=== PATIENT | male | born 1970 | race Caucasian/White ===

== ENCOUNTER 2018-03-19 16:17 | Emergency (ER) | payer OTHER ==
[~2018-03-19 16:17] MED LIST: ASPI81TA15 PO; AUG875 PO; ENO100I SC; ENOX100D2 SC; HIGH CHOLESTEROL MED; HYDR-653 PO; OMEG-11 PO; PAR20 PO; PRA20 PO; PRED-1 PO; PROM-110 PO; WARF-12 PO; WARF2.5T62 PO; [UNRECOGNIZED DRUG - REMARK]
--- NOTE | 2018-03-19 16:25 | ER Report ---
History and Physical Time Seen By MD: 16:25 Hx. of Stated Complaint: hit finger with sledgehammer HPI/ROS CHIEF COMPLAINT: Hit finger with sledgehammer HISTORY OF PRESENT ILLNESS: 47-year-old male patient presents to emergency room with complaint of injury to the right index finger. Patient states that he was working today and was driving a post with a sledgehammer. He states he missed and hit his finger. Patient states he is right-hand dominant. Patient denies having any numbness tingling in the finger. States this pain is currently a 4 out of 10. Patient has not taken any medication for this. Patient is unable recall his last tetanus shot. Allergies: Coded Allergies: No Known Drug Allergies (Verified , 03/19/18) Home Meds Active Scripts Cephalexin 500 Mg Tab (KEFLEX 500 MG TAB) 500 Mg Tablet, 500 MG PO Q6H, #26 TAB Prov:ALLEN HEREDIA 03/19/18 Discontinued Scripts Hydrocodone Bit/Acetaminophen (NORCO 5-325 TABLET) 1 Each Tablet, 1 EACH PO 2- 3XD, #20 TAB Prov:JANAE GARCIA MD 02/25/16 Past Medical/Surgical History Patient has a past medical history of pulmonary embolism, fracture, depression. Patient has a surgical history of partial colectomy, right ankle surgery. Reviewed Nurses Notes: Yes Hx Smoking: No Smoking Status: Never Smoker Constitutional Vital Sign - Last 24 Hours 03/19/18 03/19/18 03/19/18 03/19/18 16:20 16:21 16:30 16:47 Temp 97.9 Pulse 90 83 Resp 16 B/P (MAP) 128/85 (99) 128/85 102/69 (80) Pulse Ox 87 90 O2 Delivery Room Air Physical Exam General Appearance: The patient is alert, has no immediate need for airway protection and no current signs of toxicity. Respiratory: Chest is non tender, lungs are clear to auscultation. Cardiac: regular rate and rhythm Skin: No rashes or lesions. Patient has 3cm laceration to the right index finger. No tenderness to palpation DIFFERENTIAL DIAGNOSIS: After history and physical exam differential diagnosis was considered for laceration, fracture. Medical Decision Making EKG/Imaging Imaging INDICATION: hit with sledge hammer Hit index finger with a sledgehammer DATE: 03/19/2018 4:58 PM. TECHNIQUE: HAND COMPLETE RIGHT COMPARISON: None FINDINGS: Bony alignment is normal. No fracture or dislocation. There is a metallic density projected at the level of the second metacarpal head on the frontal view. IMPRESSION: No evidence of fracture or dislocation. Report Dictated By: Eamon Davison MD at 03/19/2018 4:58 PM Report E-Signed By: Eamon Davison MD at 03/19/2018 5:00 PM ED Course/Re-evaluation ED Course Patient was admitted and examined, history and physical were obtained. Differential diagnoses were considered. On examination patient has laceration to the posterior aspect of the right index finger. With patient having with a hammer an x-ray of the hand was done. There are no dislocations or fractures. I discussed findings with the patient. The wound was anesthetized, cleaned and repaired described below. Patient tolerated procedure well. We'll go ahead and discharge patient home at this time. He is to follow-up with his primary care provider to have the sutures removed in 7-10 days. He states the wound clean. I would like him to keep the wound dry for the next 48 hours. Patient states Tylenol or ibuprofen as needed for pain. Patient verbalized understanding and agreement with plan. Procedure: Laceration repair. Verbal consent was obtained from the patient. The 4 cm laceration on the right index finger was anesthetized in the usual fashion. The wound was scrubbed, draped and explored to its base with a gloved finger. There were no deep structures involved. No tendon injury was identified. The wound was repaired with 10 simple interrupted sutures using 4-0 Prolene material. The wound repair was simple. The procedure was performed by myself. Decision to Disposition Date: Mar 19, 2018 Decision to Disposition Time: 17:54 Depart Departure Latest Vital Signs Vital Signs Date Time Temp Pulse Resp B/P (MAP) Pulse Ox O2 Delivery O2 Flow Rate FiO2 03/19/18 16:47 83 90 03/19/18 16:30 102/69 (80) 03/19/18 16:21 97.9 16 Room Air Impression: Primary Impression: Finger laceration Condition: Improved Disposition: HOME OR SELF-CARE New Scripts Cephalexin 500 Mg Tab (KEFLEX 500 MG TAB) 500 Mg Tablet 500 MG PO Q6H, #26 TAB Prov: ALLEN HEREDIA 03/19/18 Patient Instructions: Finger Laceration (ED) Additional Instructions: Keep wound dry for 48 hours. Follow up with your primary care provider in the next 7-10 days to have sutures removed. Monitor for signs of infection; redness, swelling, heat, discharge, increasing pain or red streaking. Take Tylenol or Ibuprofen as needed for pain. Return to the ER with any concerns. You may change dressing as needed. Problem Qualifiers Primary Impression: Finger laceration Encounter type: initial encounter Finger: index finger Damage to nail status: without damage Foreign body presence: without foreign body Laterality: right Qualified Codes: S61.210A - Laceration without foreign body of right index finger without damage to nail, initial encounter ALLEN HEREDIA Mar 19, 2018 16:25
[2018-03-19 16:30] VITALS: BP 102/69
[2018-03-19] MEDS ORDERED: DIPHTH/TETANUS/ACEL. PERTUSSIS IM ONLY ONE (16:35)
--- NOTE | 2018-03-19 17:05 | RADIOLOGY IMAGING REPORT ---
FACILITY: [facility] PATIENT NAME: Issac Lieberman : 1970 MR: [id number] V: [id number] EXAM DATE: ORDERING PHYSICIAN: ALLEN HEREDIA TECHNOLOGIST: Location: [facility] - [place] Patient: Issac Lieberman : 1970 Visit/Account:[id number] Date of Sevice: 03/19/2018 INDICATION: hit with sledge hammer Hit index finger with a sledgehammer DATE: 03/19/2018 4:58 PM. TECHNIQUE: HAND COMPLETE RIGHT COMPARISON: None FINDINGS: Bony alignment is normal. No fracture or dislocation. There is a metallic density project ed at the level of the second metacarpal head on the frontal view. IMPRESSION: No evidence of fracture or dislocation. Report Dictated By: Eamon Davison MD at 03/19/2018 4:58 PM Report E-Signed By: Eamon Davison MD at 03/19/2018 5:00 PM WSN:[id number]
[2018-03-19] MEDS ORDERED: CEPH500T7 PO (17:53)
[2018-03-19] MEDS ORDERED: CEPHALEXIN 500 MG CAP TH 2 CAP/BOTTLE PO ONE (17:55)
== END 2018-03-19 18:10 | disposition home or self-care (01) ==
LOC: ER 16:31
DX: S61.210A Laceration without foreign body of right index finger without damage to nail, initial encounter (principal); W27.8XXA Contact with other nonpowered hand tool, initial encounter
CPT/HCPCS: 90471; 90715; 99283